=== PATIENT | male | born 1980 | race Two or more races ===

== ENCOUNTER 2018-03-07 12:12 | Emergency (ER) | payer MEDICAID ==
[~2018-03-07] VITALS: Ht 172.7 cm; Wt 79.0 kg
[2018-03-07] MEDS ORDERED: HYDROCODONE/ACETAMINOPHEN 5/325MG TABLET PO ONE (13:30)
[2018-03-07 13:42] VITALS: BP 143/98
== END 2018-03-07 17:37 | disposition home or self-care (01) ==
LOC: ER 14:28
DX: S16.1XXA Strain of muscle, fascia and tendon at neck level, initial encounter (principal); V49.9XXA Car occupant (driver) (passenger) injured in unspecified traffic accident, initial encounter; Y93.9 Activity, unspecified; Y92.410 Unspecified street and highway as the place of occurrence of the external cause
CPT/HCPCS: 72125; 72128; 73562; 99284